=== PATIENT | male | born 1990 | race Caucasian/White ===

== ENCOUNTER 2020-08-22 13:50 | Emergency (ER) | payer SELFPAY ==
[2020-08-22] MEDS ORDERED: Bupivacaine 0.5%/EPINEPHrine 1:200,000 10 ML SDV ONE (14:12)
[2020-08-22] MEDS ORDERED: Bupivacaine 0.5% 10 ML SDV ONE (14:14)
[2020-08-22] MEDS ORDERED: Cephalexin 500 MG Cap ONE (14:31)
[2020-08-22] MEDS ORDERED: Take Home: Cephalexin 500 MG Cap, 4 Cap Pack PO ONE ×2 (14:44→14:49)
--- NOTE | 2020-08-22 14:46 | EDM.PDOC ---
ED HPI GENERAL MEDICAL PROBLEM - General Chief Complaint: General Stated Complaint: R) 2nd digit rednes/swelling Time Seen by Provider: 08/22/20 14:20 Source of Information: Reports: Patient History Limitations: Reports: No Limitations - History of Present Illness INITIAL COMMENTS - FREE TEXT/NARRATIVE: This patient is a 29 year old male patient that presents to the ER. Patient reports yesterday getting two splinters in his right 2nd finger. He reports this morning waking with pain, redness, drainage from them. Denies n, v, d, f. Denies other injury. Onset Date: 08/21/20 Duration: Getting Worse Quality: Reports: Throbbing Severity: Mild Improves with: Reports: None Worsens with: Reports: None Associated Symptoms: Denies: Fever/Chills Right Finger-Index Pain Score (Numeric/FACES): 4 - Related Data Allergies Allergy/AdvReac Type Severity Reaction Status Date / Time No Known Allergies Allergy Verified 08/22/20 13:58 Home Meds: Home Meds cephALEXin [Cephalexin] 500 mg PO QID #16 capsule 08/22/20 [Rx] Past Medical History Gastrointestinal History: Reports: Other (See Below) Other Gastrointestinal History: fatty liver Social & Family History - Tobacco Use Tobacco Use Status *Q: Former Tobacco User Years of Tobacco use: 4 Packs/Tins Daily: 0.5 Used Tobacco, but Quit: Yes Month/Year Tobacco Last Used: 4 - Caffeine Use Caffeine Use: Reports: Soda - Recreational Drug Use Recreational Drug Use: Yes Recreational Drug Type: Reports: Marijuana/Hashish ED ROS GENERAL - Review of Systems Review Of Systems: See Below Constitutional: Reports: No Symptoms HEENT: Reports: No Symptoms Respiratory: Reports: No Symptoms Cardiovascular: Reports: No Symptoms Musculoskeletal: Reports: No Symptoms Skin: Reports: Other (splinter x2 foreign body right 2nd finger tip with surrounding redness and drainge) Neurological: Reports: No Symptoms Psychiatric: Reports: No Symptoms ED EXAM, GENERAL - Physical Exam Exam: See Below Exam Limited By: No Limitations General Appearance: Alert, WD/WN, No Apparent Distress Respiratory/Chest: No Respiratory Distress, Lungs Clear, Normal Breath Sounds, No Accessory Muscle Use Cardiovascular: Normal Peripheral Pulses, Regular Rate, Rhythm, No Edema, No Gallop, No JVD, No Murmur, No Rub Peripheral Pulses: 2+: Radial (L), Radial (R) Extremities: Normal Range of Motion, No Pedal Edema, Normal Capillary Refill, Redness (right 2nd finger tip) Neurological: Alert, Oriented Skin Exam: Warm, Dry, Normal Color, No Rash, Other (splinter x2 right 2nd finger tip with surrounding redness, heat, drainage. No streaking redness, no joint involvement. ) Lymphatic: No Adenopathy ED GENERAL MEDICAL PROCEDURES - Additional/Other Procedure(s) Other (Free Text) Procedure(s): Marcain 0.5% plain with mix 50/50 lidocaine 1% plain. Betadine to clean the webspaces of the right 2nd digit. 28g needle placed 1ml of medication into each webspace without complication. Numbing achieved good. Then splinters removed. Course - Vital Signs Last Recorded V/S: Last Vital Signs Temp 99.2 F 08/22/20 14:02 Pulse 88 08/22/20 14:02 Resp 18 08/22/20 14:02 BP 137/89 08/22/20 14:02 Pulse Ox 96 08/22/20 14:02 - Orders/Labs/Meds Meds: Medications Discontinued Medications Generic Name Dose Route Start Last Admin Trade Name Braydenq PRN Reason Stop Dose Admin Bupivacaine HCl Confirm 08/22/20 14:14 08/22/20 14:51 Bupivacaine 0.5% 10 Ml Sdv Administered 08/22/20 14:15 Not Given Dose 10 ml .ROUTE .STK-MED ONE Bupivacaine HCl 10 ml 08/22/20 14:47 08/22/20 14:50 Bupivacaine 0.5% 10 Ml Sdv INJECT 08/22/20 14:48 10 ml ONETIME ONE Administration Bupivacaine HCl/Epinephrine Bitart Confirm 08/22/20 14:12 08/22/20 14:50 Bupivacaine 0.5%/Epinephrine 1:200,000 10 Ml Sdv Administered 08/22/20 14:13 Not Given Dose 10 ml .ROUTE .STK-MED ONE Cephalexin 2 packet 08/22/20 14:44 Take Home: Cephalexin 500 Mg Cap, 4 Cap Pack PO 08/22/20 14:45 ONETIME ONE Cephalexin 1 packet 08/22/20 14:49 Take Home: Cephalexin 500 Mg Cap, 4 Cap Pack PO 08/22/20 14:50 ONETIME ONE Lidocaine HCl Confirm 08/22/20 14:14 08/22/20 14:52 Lidocaine 1% 5 Ml Sdv Administered 08/22/20 14:15 Not Given Dose 5 ml .ROUTE .STK-MED ONE Lidocaine HCl 5 ml 08/22/20 14:45 08/22/20 14:48 Lidocaine 1% 5 Ml Sdv INJECT 08/22/20 14:46 5 ml ONETIME ONE Administration Lidocaine HCl 10 ml 08/22/20 14:49 08/22/20 14:52 Lidocaine 0.5% 50 Ml Sdv INJECT 08/22/20 14:50 Not Given STAT STA - Re-Assessments/Exams Free Text/Narrative Re-Assessment/Exam: 08/22/20 14:25 Attempted both splinter removal with syringe suction, without success. Then attempted forceps and alligator. Patient asked to stop and numb. I then performed digital block, and was then easily able to remove both splinters with forceps and alligator forceps. Departure - Departure Time of Disposition: 14:56 Disposition: Home, Self-Care 01 Condition: Good Clinical Impression: Foreign body (FB) in soft tissue Cellulitis Qualifiers: Site of cellulitis: extremity Site of cellulitis of extremity: finger Laterality: right Qualified Code(s): L03.011 - Cellulitis of right finger - Discharge Information *PRESCRIPTION DRUG MONITORING PROGRAM REVIEWED*: Not Applicable *COPY OF PRESCRIPTION DRUG MONITORING REPORT IN PATIENT SUSIE: Not Applicable Prescriptions: cephALEXin [Cephalexin] 500 mg PO QID #16 capsule Instructions: Cellulitis, Adult, [id number] Referrals: PCP,None [Primary Care Provider] - Forms: ED Department Discharge Additional Instructions: Followup with your primary care provider Return to the ER for worsening of condition or any emergent concerns Wash the area twice a day with soap and water Keflex 500mg 1 pill four times a day for 7 days total #16 no refill: #12 take home Use gloves when working with wood Sepsis Event Note (ED) - Evaluation Sepsis Screening Result: No Definite Risk - Focused Exam Vital Signs: Vital Signs Temp Pulse Resp BP Pulse Ox 08/22/20 14:02 99.2 F 88 18 137/89 96 - Assessment/Plan Plan: PLEASE SEE RN NOTE FOR PFS
[2020-08-22] MEDS ORDERED: Bupivacaine 0.5% 10 ML SDV INJECT ONE (14:47)
[2020-08-22] MEDS ORDERED: Lidocaine 0.5% 50 ML SDV INJECT STA (14:49)
== END 2020-08-22 15:02 | disposition home or self-care (01) ==
LOC: CC.ED 13:50
DX: S60.450A Superficial foreign body of right index finger, initial encounter (principal); L03.011 Cellulitis of right finger; W45.8XXA Other foreign body or object entering through skin, initial encounter
CPT/HCPCS: 64450; 99283; A9270; J3490